=== PATIENT | female | born 1995 | race Caucasian/White ===

== ENCOUNTER 2019-02-10 07:36 | Emergency (ER) | payer OTHER ==
[~2019-02-10] VITALS: Ht 170.2 cm; Wt 62.1 kg
[2019-02-10 07:42] VITALS: BP_SYST 157
--- NOTE | 2019-02-10 08:55 | NUR ---
Patient to ER bed 7 to gown for evaluation. Side rails up. Report given to SHON Martin.
--- NOTE | 2019-02-10 09:10 | NUR ---
Pt arrived to ED brought in by mother with complaints of throat pain 09/26. Pt was attending a cousins birthday a few days ago who tested positive for strep. Pt denies any N/V/D.
--- NOTE | 2019-02-10 09:15 | NUR ---
ER at bedside examining patient.
[2019-02-10] MEDS ORDERED: KETOROLAC TROMETHAMINE 60 MG/2 ML VIAL IM ONE (09:30)
[2019-02-10] MEDS ORDERED: DEXAMETHASONE SOD PHOSPHATE 10 MG/ML VIAL IVP ONE (09:30)
--- NOTE | 2019-02-10 09:50 | NUR ---
Pt medicated and resting in bed with mother at bedside.
[2019-02-10] MEDS ORDERED: NACL 0.9% 1,000 ML IV ONE (09:56)
--- NOTE | 2019-02-10 09:57 | NUR ---
Pt was witnessed turning pale, stated she felt hot and might vomit. Pt then laid back on bed, eyes started rolling in upward direction and bilateral upper extremities began seizure like movement. Pt produced small amount of foam in mouth. Pt was non-responsive to verbal commands. Lasted approximately 5 seconds.
--- NOTE | 2019-02-10 09:58 | NUR ---
pt is connected to in room monitor system. Pt denies loss of bowel or bladder. Finger stick of 88. Will continue to monitor
--- NOTE | 2019-02-10 10:30 | NUR ---
CT - pt off unit for CT scan
[2019-02-10 10:36] LABS: BASOPHILS # (AUTO) 0.1 K/uL (0.0-0.2); EOSINOPHILS # (AUTO) 0.1 K/uL (0.0-0.4); EOSINOPHILS % (AUTO) 1.1 % (0.0-4.0); HEMATOCRIT 40.8 % (36-48); HEMOGLOBIN 13.9 g/dL (12.0-16.0); LYMPHOCYTES # (AUTO) 1.8 K/uL (1.0-5.5); LYMPHOCYTES % (AUTO) 19.5 % (20.5-51.5); MEAN CORPUSCULAR HEMOGLOBIN 32 pg (27-31); MEAN CORPUSCULAR HGB CONC 34 % (32-36); MEAN CORPUSCULAR VOLUME 95 fL (79.0-98.0); MONOCYTES # (AUTO) 0.8 K/uL (0.0-1.0); MONOCYTES % (AUTO) 8.2 % (1.7-9.3); NEUTROPHILS # (AUTO) 6.6 K/uL (1.8-7.7); NEUTROPHILS % (AUTO) 70.2 % (40.0-70.0); PLATELET COUNT (AUTO) 178 K/uL (130-430); RED BLOOD CELL COUNT(AUTO) 4.32 MIL/uL (4.2-6.2); RED CELL DISTRIBUTION WIDTH 12.4 % (9.0-15.0); WHITE BLOOD COUNT (AUTO) 9.4 K/uL (4.8-10.8)
[2019-02-10 10:58] LABS: ANION GAP 6 (5-15); CALCIUM 8.6 mg/dL (8.4-11.0); CHLORIDE 103 mmol/L (98-107); CREATININE 0.78 mg/dL (0.55-1.30); GLUCOSE 120 mg/dL (70-99); SODIUM SERUM 138 mmol/L (136-145); UREA NITROGEN, BLOOD 9 mg/dL (8-21)
[2019-02-10 11:03] LABS: ALANINE AMINOTRANSFERASE 18 U/L (12-78); ALBUMIN 3.8 g/dL (3.4-4.8); ASPARTATE AMINOTRANSFERASE 14 U/L (10-37); TOTAL BILIRUBIN 0.8 mg/dL (0.0-1.0)
[2019-02-10 11:04] LABS: ALCOHOL, BLOOD < 3 mg/dL (<10); GFR AFRICAN AMERICAN 116 mL/min (>90)
--- NOTE | 2019-02-10 11:44 | NUR ---
Resting Pt is resting in bed with eyes closed, pt is easily awaken to verbal stimuli. Pt denies any N/V at this time. Pt denies feeling light headed or any complaints of pain at this time. Will continue to monitor.
--- NOTE | 2019-02-10 12:25 | NUR ---
No complaints of distress, pain denies N/V. Pt stated that "I feel fine"
[2019-02-10 12:42] LABS: BILIRUBIN,URINE NEGATIVE (NEGATIVE); BLOOD, URINE NEGATIVE (NEGATIVE); COLOR,URINE YELLOW (YELLOW); GLUCOSE,URINE NEGATIVE (NEGATIVE); KETONES,URINE TRACE (NEGATIVE); LEUKOCYTE ESTERASE ,URINE 1+ (NEGATIVE); NITRITE, URINE NEGATIVE (NEGATIVE); PH,URINE 7.5 (5.0-8.0); PROTEIN URINE NEGATIVE (NEGATIVE); UROBILINOGEN,URINE 0.2 (0.2-1.0)
[2019-02-10 12:47] LABS: CLARITY/URINE SLIGHTLY HAZY (CLEAR)
[2019-02-10 12:59] LABS: BACTERIA,URINE MODERATE /HPF (None Seen); RBC,URINE NONE SEEN /HPF (0-3)
--- NOTE | 2019-02-10 13:01 | NUR ---
Patient given written and verbal discharge instructions and verbalizes understanding. ER MD discussed with patient the results and treatment provided. Patient in stable condition. ID arm band removed. IV catheter removed intact and dressing applied, no active bleeding. Rx of Penicillin given. Patient educated on pain management and to follow up with PMD. Pain Scale 0/10. Opportunity for questions provided and answered. Medication side effect fact sheet provided.
[2019-02-10 13:07] LABS: BARBITURATE, URINE NEGATIVE (NEG <=200); BENZODIAZEPINE, URINE NEGATIVE (NEG <=150); CANNABINOID, URINE NEGATIVE (NEG <=50); COCAINE, URINE POSITIVE (NEG <=150); METHAMPHETAMINES SCREEN,URINE NEGATIVE (NEG <=500); OPIATE, URINE NEGATIVE (NEG <=100); PHENCYCLIDINE SCREEN,URINE NEGATIVE (NEG <=25); UR TRICYCLIC ANTIDEPRESSANTS NEGATIVE (NEG <=300); URINE AMPHETAMINE NEGATIVE (NEG <=500); URINE METHADONE NEGATIVE (NEG <=200); URINE OXYCODONE SCREEN NEGATIVE (NEG <=100); URINE PROPOXYPHENE SCREEN NEGATIVE (NEG <=300)
[2019-02-10 13:25] VITALS: BP_SYST 120
== END 2019-02-10 13:01 | disposition home or self-care (01) ==
LOC: SED 07:36
DX: J02.9 Acute pharyngitis, unspecified (principal); R13.10 Dysphagia, unspecified; Z88.8 Allergy status to other drugs, medicaments and biological substances; Z88.2 Allergy status to sulfonamides
CPT/HCPCS: 36415; 70450; 80053; 80307; 81000; 81025; 82550; 82962; 83605; 85025; 86308; 86403; 87086; 96372; 99284; G0482; J1100; J1885; J7030